=== PATIENT | male | born 1955 | race African-American/Black ===

== ENCOUNTER 2019-04-08 11:29 | Emergency (ER) | payer SELFPAY ==
[~2019-04-08] VITALS: Ht 182.9 cm; Wt 85.0 kg
[2019-04-08 11:47] VITALS: BP 156/93
== END 2019-04-08 16:30 | disposition left against medical advice (07) ==
LOC: ER 12:37
DX: Z53.21 Procedure and treatment not carried out due to patient leaving prior to being seen by health care provider (principal)